=== PATIENT | female | born 1965 | race Two or more races ===

== ENCOUNTER 2016-09-05 09:20 | Day surgery (SDC) | payer MEDICAID ==
[~2016-09-05] VITALS: Ht 162.6 cm; Wt 62.0 kg
[2016-09-05] VITALS (11 sets, daily range): BP systolic 118–138; BP diastolic 61–77; PULSE 75–104; RESP 11–20; Ht 162.6 cm; Wt 62.0 kg
[2016-09-05] MEDS ORDERED: CEFAZOLIN 2 GM/50 ML (PMX) 50 ML IVPB ONE (10:00)
[2016-09-05] MEDS ORDERED: SOD CHLORIDE 0.9% 1,000 ML IV SCH (10:00)
[2016-09-05] MEDS ORDERED: CALCIUM (11:01)
[2016-09-05] MEDS ORDERED: MVI (11:01)
[2016-09-05] MEDS ORDERED: VIT D (11:01)
--- NOTE | 2016-09-05 11:16 | RADRPT ---
PROCEDURE: XR Chest. CLINICAL INDICATION: preop TECHNIQUE: Single frontal view of the chest was obtained COMPARISON: None FINDINGS: The heart and mediastinum are within normal limits. The lungs are clear. There is no pleural effusion or pneumothorax. RPTAT: AA IMPRESSION: No acute disease. .Johnny Edouard MD, Date Time Electronically viewed and signed by .Johnny Edouard MD, on 09/05/2016 11:16 .S/
[2016-09-05 11:23] LABS: ADD SCAN DIFF NO
[2016-09-05 11:25] LABS: BASOPHILS % 0.4 % (0.0-2.0); EOSINOPHILS # 0.1 10^3/ul (0.0-0.5); EOSINOPHILS % 1.3 % (0.0-7.0); HEMATOCRIT 41.3 % (37.0-47.0); HEMOGLOBIN 13.4 g/dl (12.0-16.0); LYMPHOCYTES # 1.6 10^3/ul (0.8-2.9); LYMPHOCYTES % 34.3 % (15.0-51.0); MEAN CORPUSCULAR HEMOGLOBIN 29.6 pg (29.0-33.0); MEAN CORPUSCULAR HGB CONC 32.4 g/dl (32.0-37.0); MEAN CORPUSCULAR VOLUME 91.4 fl (82.0-101.0); MEAN PLATELET VOLUME 10.8 fl (7.4-10.4); MONOCYTE # 0.3 10^3/ul (0.3-0.9); NEUTROPHIL # 2.7 10^3/ul (1.6-7.5); NEUTROPHILS % 57.8 % (39.0-77.0); PLATELET COUNT 215 10^3/UL (140-415); RED BLOOD COUNT 4.52 10^6/ul (4.20-5.40); RED CELL DISTRIBUTION WIDTH 12.3 % (11.5-14.5); WHITE BLOOD COUNT 4.6 10^3/ul (4.8-10.8)
[2016-09-05 11:36] LABS: INR 0.94; PROTIME 12.6 Sec (12.2-14.2)
[2016-09-05 11:37] LABS: PARTIAL THROMBOPLASTIN TIME 27.9 Sec (25.0-35.0)
[2016-09-05 11:40] LABS: CALCIUM 9.3 mg/dl (8.4-10.2); CREATININE 0.55 mg/dl (0.44-1.00); POTASSIUM 4.1 mmol/L (3.5-5.1)
[2016-09-05] MEDS ORDERED: PROPOFOL 20 ML ONE (14:29)
[2016-09-05] MEDS ORDERED: ONDANSETRON 4 MG INJ ONE (14:29)
[2016-09-05] MEDS ORDERED: FENTAnyl 50 MCG/ML VIAL ONE (14:29)
[2016-09-05] MEDS ORDERED: MIDAZOLAM 1 MG/ML 2 ML INJ ONE (14:29)
[2016-09-05] MEDS ORDERED: METOCLOPRAMIDE 10 MG INJ ONE (14:29)
[2016-09-05] MEDS ORDERED: CEFAZOLIN 1 GM INJ ONE (14:47)
[2016-09-05] MEDS ORDERED: MEPERIDINE 25 MG INJ IV PRN (15:00)
[2016-09-05] MEDS ORDERED: OXYCODONE/ACETAMINOPHEN (5/325) TAB PO PRN ×2 (15:00)
[2016-09-05] MEDS ORDERED: DIPHENHYDRAMINE 50 MG INJ IV PRN (15:00)
[2016-09-05] MEDS ORDERED: METOCLOPRAMIDE 10 MG INJ IV PRN (15:00)
[2016-09-05] MEDS ORDERED: HYDROmorphONE (0.2 MG/ML) 10ML SYG IV PRN (15:00)
[2016-09-05] MEDS ORDERED: EPHEDrine SULFATE 50 MG/5 ML SYG ONE (15:04)
--- NOTE | 2016-09-05 15:47 | OPR ---
DATE OF OPERATION: 09/05/2016 PREOPERATIVE DIAGNOSIS: Left breast mass with core biopsy positive carcinoma in situ. POSTOPERATIVE DIAGNOSIS: Left breast mass core biopsy positive carcinoma in situ. OPERATION PERFORMED: Left partial mastectomy. ANESTHESIA: General. ANESTHESIOLOGIST: Sanaz Mota MD SURGEON: Mikey Mckeon MD SUMAC TANNER: Nery Mendoza MD INDICATIONS FOR PROCEDURE: The patient is a 51-year-old female who presented with a vaguely palpabl e mass at 6 o'clock location of her left breast. 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 Sh e was counseled as to need for complete surgical excision. She consented and was scheduled for surg buck. DESCRIPTION OF PROCEDURE: The patient was brought to the operating theater, placed under general an esthesia. The left breast was prepped and draped in usual sterile fashion. A periareolar incision was made from the 9 o'clock position through the 6 o'clock position to the 3 o'clock position. Subc utaneous tissue was dissected with cautery. Skin hooks were used to elevate the skin edges and wide circumferential dissection of the tissue associated with the mass took place. Specimen was transec vincent, oriented, and sent for permanent pathologic analysis. Dr. Mckeon then inspected the wound cavit y. There appeared to be additional suspicious tissue medially. Additional resection of this medial tissue took place. It was oriented and sent for pathologic analysis. The wound was irrigated. Res idual bleeding was controlled with cautery. The skin was then reapproximated with a deep dermal lay er of 4-0 Vicryl sutures in interrupted fashion, followed by final skin approximation with a 5-0 PDS suture in subcuticular fashion. The patient tolerated procedure well. Estimated blood loss was 30 mL. There were no complications and the patient was transported in stable condition to the recover y room where circumferential compression dressing was applied. Dictated By: MIKEY MCKEON MD TL/NTS Conf#: [id number] DID#: [id number] CC: NERY MENDOZA MD;*EndCC*
[2016-09-05] MEDS: ONDANSETRON 4 MG INJ IV PRN ×2 (15:58→16:30)
[2016-09-05] MEDS: HYDROmorphONE (0.2 MG/ML) 10ML SYG IV PRN ×4 (15:58→16:23)
--- NOTE | 2016-09-09 17:51 | RADRPT ---
Vent Rate: 67 bpm RR Interval: 0 msec LA Interval: 128 msec QRS Duration: 92 msec QT Interval: 404 msec QTC Interval: 426 msec P-R-T [place]: 60 - 68 - 74 degrees Normal sinus rhythm T inverted in aVL Abnormal ECG Electronically Signed By: Lucio Quezada [id number]
== END 2016-09-05 19:07 | disposition home or self-care (01) ==
LOC: SDS 09:20
PROVIDERS: ATTEND Surgery Surgical Oncology
DX: D05.12 Intraductal carcinoma in situ of left breast (principal)
CPT/HCPCS: 71010; 80048; 84703; 85025; 85610; 85730; 88307; 93005; J0690; J1170; J2250; J2405; J2765; J3010

== ENCOUNTER 2016-10-13 10:13 | Day surgery (SDC) | payer MEDICAID ==
[2016-10-10 09:27] LABS: ADD SCAN DIFF NO
[2016-10-10 09:33] LABS: BASOPHILS % 0.7 % (0.0-2.0); HEMATOCRIT 38.9 % (37.0-47.0); HEMOGLOBIN 12.7 g/dl (12.0-16.0); LYMPHOCYTES # 1.6 10^3/ul (0.8-2.9); MEAN CORPUSCULAR HEMOGLOBIN 30.4 pg (29.0-33.0); MEAN CORPUSCULAR HGB CONC 32.6 g/dl (32.0-37.0); MEAN CORPUSCULAR VOLUME 93.1 fl (82.0-101.0); MEAN PLATELET VOLUME 10.9 fl (7.4-10.4); MONOCYTE # 0.2 10^3/ul (0.3-0.9); NEUTROPHIL # 2.1 10^3/ul (1.6-7.5); NEUTROPHILS % 53.1 % (39.0-77.0); PLATELET COUNT 162 10^3/UL (140-415); RED BLOOD COUNT 4.18 10^6/ul (4.20-5.40); RED CELL DISTRIBUTION WIDTH 12.1 % (11.5-14.5)
[2016-10-10 09:41] LABS: POTASSIUM 4.3 mmol/L (3.5-5.1)
[2016-10-10 09:46] LABS: INR 0.95; PARTIAL THROMBOPLASTIN TIME 32.1 Sec (25.0-35.0); PROTIME 12.7 Sec (12.2-14.2)
[2016-10-10 10:01] LABS: CALCIUM 9.3 mg/dl (8.4-10.2); CREATININE 0.62 mg/dl (0.44-1.00)
[2016-10-10 10:05] VITALS: BMI 22.7
[~2016-10-13] VITALS: Ht 162.6 cm; Wt 61.0 kg
[2016-10-13] VITALS (26 sets, daily range): BP systolic 110–138; BP diastolic 57–82; PULSE 68–94; RESP 14–25; Ht 162.6 cm; Wt 61.0 kg
[~2016-10-13 10:13] MED LIST: CALCIUM; MVI; VIT D
[2016-10-13] MEDS ORDERED: SOD CHLORIDE 0.9% 1,000 ML IV ONE (10:30)
[2016-10-13] MEDS ORDERED: CEFAZOLIN 1 GM/50 ML (PMX) 50 ML IVPB ONE (10:30)
[2016-10-13] MEDS ORDERED: ONDANSETRON 4 MG INJ IV PRN ×2 (11:30→13:00)
[2016-10-13] MEDS ORDERED: morphine 2 MG INJ IV PRN (11:30)
[2016-10-13] MEDS ORDERED: ACETAMINOPHEN 1000MG/100ML IV 100 ML IVPB PRN (11:30)
--- NOTE | 2016-10-13 11:43 | RADRPT ---
PROCEDURE: XR Chest AP portable CLINICAL INDICATION: Left mastectomy TECHNIQUE: An AP portable radiograph of the chest was submitted. COMPARISON: 09/05/2016 FINDINGS: Support Hardware: None Cardiovascular: The cardiovascular silhouette appears unremarkable. Lung Arroyo: The lung arroyo appear clear with no nodule, alveolar infiltrate, or interstitial promi nence evident. Pleural Spaces: No pneumothorax or pleural effusion is identified. Osseous Structures: Mild degenerative spine changes are noted. Soft Tissues: Unremarkable. IMPRESSION: Stable and unremarkable portable chest. Physician Berny Date Time Electronically viewed and signed by Kameron Campbell Physician on 10/13/2016 11:43 RH/
[2016-10-13] MEDS ORDERED: MIDAZOLAM 1 MG/ML 2 ML INJ ONE (12:42)
[2016-10-13] MEDS ORDERED: FENTAnyl 50 MCG/ML VIAL ONE (12:42)
[2016-10-13] MEDS ORDERED: HYDROmorphONE (0.2 MG/ML) 10ML SYG IV PRN (13:00)
[2016-10-13] MEDS ORDERED: MEPERIDINE 25 MG INJ IV PRN (13:00)
[2016-10-13] MEDS ORDERED: DIPHENHYDRAMINE 50 MG INJ IV PRN (13:00)
[2016-10-13] MEDS ORDERED: CEFAZOLIN 1 GM INJ ONE (13:41)
[2016-10-13] MEDS ORDERED: PROPOFOL 20 ML ONE (13:41)
[2016-10-13] MEDS ORDERED: ONDANSETRON 4 MG INJ ONE (13:41)
[2016-10-13] MEDS ORDERED: LIDOCAINE 2% (SDV) 5 ML INJ ONE (13:41)
[2016-10-13] MEDS ORDERED: METOCLOPRAMIDE 10 MG INJ ONE (13:47)
[2016-10-13] MEDS ORDERED: DEXAMETHASONE 4 MG/ML 1 ML INJ ONE (13:47)
[2016-10-13] MEDS: FENTAnyl 50 MCG/ML VIAL IV PRN ×2 (14:18→14:23)
[2016-10-13] MEDS: HYDROmorphONE (0.2 MG/ML) 10ML SYG IV PRN ×2 (14:19→14:24)
--- NOTE | 2016-10-13 16:05 | OPR ---
DATE OF OPERATION: 10/13/2016 PREOPERATIVE DIAGNOSIS: Ductal carcinoma in situ, left breast with a microinvasion. POSTOPERATIVE DIAGNOSIS: Ductal carcinoma in situ, left breast with a microinvasion. OPERATION PERFORMED: Left total mastectomy. ANESTHESIA: General. ANESTHESIOLOGIST: Abdiel Lerner MD. SURGEON: Mikey Mckeon MD. ICU NURSE: LISS HARGROVE MD. INDICATIONS FOR PROCEDURE: The patient is a 51-year-old female who presented with a palpable mass i n her left breast. She had a previous left partial mastectomy. The final pathology revealed ductal carcinoma in situ, a relatively large span with an area of microinvasion and the tumor was directly under the nipple. The patient was counseled as to the need for a minimum reexcision and considerat ion for sentinel lymph node biopsy. However, the patient and the patient's family did not want to p roceed in that fashion as they were reluctant to also have radiation and they did not want to accept the fact that they may need additional surgery if margins remain positive. Therefore, they elected to undergo a left mastectomy and discussion was made that possible lymph node sampling would take p lace. Patient consented and was scheduled for surgery. DESCRIPTION OF PROCEDURE: The patient was brought to the operating theater, placed under general en dotracheal tube anesthesia. The left breast and axillary region were prepped and draped in usual st erile fashion. An elliptical incision was then made around the portion of the breast skin including the nipple areolar complex. This took place with a 15 blade scalpel. The skin edges were elevated with Allis Robert clamps and skin flaps were then developed sequentially using cautery, first superi erwin to the clavicle, then medially to the sternal border, inferiorly to the inframammary fold and t hen laterally until the latissimus dorsi muscle was identified throughout its course. Mastectomy th en took place from medial to lateral at the border of the pectoralis major muscle. The pectoralis m inor muscle was identified. Clavipectoral fascia was incised. Gentle dissection along the chest wa ll took place. Dr. Mckeon thoroughly inspected this area. There did not appear to be any identifiab le lymph nodes and certainly were no enlarged lymph nodes. At this point, Dr. Mckeon made decision t o complete the procedure taking only a minimal amount of axillary tissue. This breast was then cannon sected using cautery, oriented and sent for pathologic analysis. The wound was irrigated. Minimal bleeding was controlled with cautery. A #10 flat Quoc-Conroy drain was then brought through the l eft mid axillary line, cut to size and laid over the pectoralis major muscle and secured in place wi th 2-0 nylon suture in the standard fashion. The skin was then reapproximated with skin gale. P atient tolerated procedure well. ESTIMATED BLOOD LOSS: 20 mL. COMPLICATIONS: There were no complications and the patient was transported in stable condition to [facility] recovery room. Dictated By: MIKEY LUCAS/ITZEL Conf#: [id number] DID#: [id number]
--- NOTE | 2016-10-13 16:20 | HP ---
DATE OF ADMISSION: 10/13/2016 HISTORY OF PRESENT ILLNESS: The patient is a 51-year-old female with invasive cancer of the left br east. The patient underwent left partial mastectomy for left breast mass 2 months ago and margin bi opsy came positive for invasive cancer and the patient was evaluated by Dr. Mckeon in surgical consul tation. The patient was brought and underwent left modified radical mastectomy ____. The patient e xperienced significant pain and dizziness and the patient will be admitted for further evaluation an d management to medical/surgical floor. PAST MEDICAL HISTORY: Positive for arthritis. PAST SURGICAL HISTORY: Status post left partial mastectomy in August 2016 and status post hystere ctomy and bilateral oophorectomy. FAMILY HISTORY: Negative for any history of breast or ovarian cancer. SOCIAL HISTORY: The patient lives with her family. The patient denies tobacco use, denies alcohol u se, denies any or illicit drug use. ALLERGIES: NO KNOWN ALLERGIES. HOME MEDICATIONS: Include calcium supplements, multivitamins and vitamin D. REVIEW OF SYSTEMS: A 12-point review of systems is negative unless was mentioned in the HPI. PHYSICAL ASSESSMENT GENERAL: Well-developed, well-nourished female currently is awake, alert. VITAL SIGNS: Temperature 97.8, pulse is 82, blood pressure 124/67, respiratory rate 18, oxygen satu ration 99% on room air. HEENT: Head is atraumatic, normocephalic. Pupils are equal and reactive to light and accommodation . Oral mucosa is pink and moist. NECK: Supple, no cervical lymphadenopathy, no thyromegaly. CHEST: Lungs clear bilaterally. The patient has a surgical dressing which is dry, clean and intact . CARDIOVASCULAR: Normal S1, S2. No murmurs, gallops, clicks, rubs noted. ABDOMEN: Round, soft, nondistended, nontender. Bowel sounds present. There is no guarding, no austin ound tenderness. EXTREMITIES: No edema, clubbing, cyanosis. Pulses equal bilaterally 2+. SKIN: There is no rash, petechiae noted. NEUROLOGIC: Patient is awake, alert and oriented x3, no focal deficits noted. LABORATORY DATA: On admission, CBC: White blood cells 4.0, hemoglobin is 12.7, hematocrit 38.9, pl atelets 162. Chemistry: Sodium is 141, potassium 4.3, chloride 105, carbon dioxide 28, anion gap 1 2, BUN is 15, creatinine 0.162, glucose 96, calcium 9.3. PT is 12.7, INR is 0.95. IPTT 32.1. IMAGING: Chest x-ray stable and unremarkable portable chest. ASSESSMENT AND PLAN: Invasive cancer of the left breast status post left modified radical mastectom y. We will continue morphine and Tylenol p.r.n. for pain, Zofran p.r.n. for nausea. Continue IV fl uids. Monitor electrolytes. Incentive spirometer q.1 no oral patient is awake. Continue sequential compression devices for deep venous thrombosis prophylaxis. Further recommendations based on clinical course. Plan of care was discussed with Dr. Corey. Dictated By: DENISE RUBIO TELEPHONE MESSENGER for GEOVANNA COREY MD SR/NTS Conf#: [id number] DID#: [id number]
[2016-10-13] MEDS: D5W-0.45 NACL + KCL 20 MEQ 1,000 ML IV SCH ×3 (17:15→19:02)
[2016-10-14 01:00] VITALS: BP 102/59; PULSE 80; RESP 18
[2016-10-14] MEDS: D5W-0.45 NACL + KCL 20 MEQ 1,000 ML IV SCH ×2 (02:33→11:02)
[2016-10-14 05:00] VITALS: BP 108/58; PULSE 78; RESP 19
[2016-10-14] MEDS ORDERED: HYDROCODONE/APAP (5/325) TAB PO PRN (07:00)
[2016-10-14 07:17] VITALS: BP 119/68; RESP 20
[2016-10-14 07:52] LABS: ADD SCAN DIFF NO
[2016-10-14 08:08] LABS: BASOPHILS % 0.1 % (0.0-2.0); HEMATOCRIT 38.5 % (37.0-47.0); HEMOGLOBIN 12.2 g/dl (12.0-16.0); LYMPHOCYTES # 1.2 10^3/ul (0.8-2.9); MEAN CORPUSCULAR HEMOGLOBIN 29.8 pg (29.0-33.0); MEAN CORPUSCULAR HGB CONC 31.7 g/dl (32.0-37.0); MEAN CORPUSCULAR VOLUME 94.1 fl (82.0-101.0); MEAN PLATELET VOLUME 11.7 fl (7.4-10.4); MONOCYTE # 0.5 10^3/ul (0.3-0.9); NEUTROPHILS % 83.2 % (39.0-77.0); PLATELET COUNT 194 10^3/UL (140-415); RED BLOOD COUNT 4.09 10^6/ul (4.20-5.40); RED CELL DISTRIBUTION WIDTH 12.1 % (11.5-14.5); WHITE BLOOD COUNT 10.8 10^3/ul (4.8-10.8)
[2016-10-14 08:16] LABS: POTASSIUM 4.5 mmol/L (3.5-5.1)
[2016-10-14 08:19] LABS: CREATININE 0.59 mg/dl (0.44-1.00)
[2016-10-14 08:20] LABS: CALCIUM 8.8 mg/dl (8.4-10.2)
[2016-10-14] MEDS ORDERED: HYDR-3498 PO (14:32)
--- NOTE | 2016-10-15 07:35 | PN ---
DATE: 10/14/2016 Postop day #1, status post left complete mastectomy for cancer of the left breast status post . SUBJECTIVE: dressing is loose. patient complaints. OBJECTIVE: VITAL SIGNS: 98, 82, 20, 109/68 and saturation 100% on room air. LABORATORY DATA: WBC with 83% segmented, hemoglobin 12.2, hematocrit 38.5, no change. Electrolytes are within normal limits. The dressing is loose. Quoc -Conroy has drained 60 mL since operation up to today morning and last night 10 mL and since morning until now, which is 5 p.m. 15 mL, it is semi bloody. ASSESSMENT AND PLAN: Status post left complete mastectomy. The patient is stable. Hematocrit and hemoglobin are stable. Quoc-Conroy drain is acceptable. Dressing was loose, so it was rewrapped around the chest wall again. PLAN: The patient can be discharged home today. Follow up by Dr. Mckeon. The patient should call the office tomorrow and make an appointment. The nurse taught the patient's daughter how to manage the Quoc-Conroy drain and how to measure the drainage. Dictated By: LISS HARGROVE MD PS/NTS Conf#: [id number] DID#: [id number] MTDD
--- NOTE | 2016-10-17 05:29 | DS ---
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 BRIEF HISTORY: The patient is a 51-year-old female who underwent previous left partial mastectomy. The final pathology revealed ductal carcinoma in situ and relatively large stent with an area of mi croinvasion, and the tumor was directed under the nipple. The patient was counseled as to the need for ____ excision and consideration for sentinel lymph node biopsy; however, the patient's family di d not want to proceed in that fashion as they were reluctant to also have radiation. They did not w ant to accept the fact that they need additional surgery if the margins remaining positive; therefor e, they elected to undergo left mastectomy. The patient was brought to the hospital and underwent l eft total mastectomy. Postoperatively, the patient experienced significant pain and dizziness, and the patient was admitted for further evaluation and management. HOSPITAL COURSE: The patient was given Tylenol and morphine for pain and Zofran for nausea. The pa hakannt's condition gradually improved, and the patient's pain was well controlled. The patient was d ischarged home. CONDITION ON DISCHARGE: Hemodynamically stable. ACTIVITY: As patient tolerates. DIET: Regular diet. DISCHARGE MEDICATIONS: The patient was given prescription for [place] p.r.n. for pain. The patient i s to continue on her multivitamins and home medications. The patient is instructed to follow up bill Mckeon in postoperative appointment in 5 to 7 days. Interdisciplinary plan of care was establi shed for this patient. Plan of care was discussed with Dr. Corey. Dictated By: DENISE RUBIO YARN SPOOLER for GEOVANNA COREY MD SR/NTS Conf#: [id number] DID#: [id number]
--- NOTE | 2016-10-17 15:13 | RADRPT ---
Vent Rate: 62 bpm RR Interval: 0 msec [place] Interval: 138 msec QRS Duration: 96 msec QT Interval: 412 msec QTC Interval: 418 msec P-R-T [place]: 56 - 60 - 64 degrees Normal sinus rhythm Normal ECG Electronically Signed By: Lucio Quezada [id number]
== END 2016-10-14 20:15 | disposition home or self-care (01) ==
LOC: SDS 10:13 → MS2 17:10 → SDS 10-14 20:15
PROVIDERS: ATTEND Surgery Surgical Oncology
DX: Z85.3 Personal history of malignant neoplasm of breast (principal)
CPT/HCPCS: 19303; 71010; 80048; 84703; 85025; 85610; 85730; 88307; 93005; J0131; J0690; J1100; J1170; J2175; J2250; J2405; J2765; J3010; J3480; Z7512; Z7610

== ENCOUNTER 2016-10-16 03:42 | Emergency (ER) | payer MEDICAID ==
[~2016-10-16] VITALS: Ht 162.6 cm; Wt 62.0 kg
[~2016-10-16 03:42] MED LIST changes: +HYDR-3498 PO
[2016-10-16 03:45] VITALS: Ht 162.6 cm; Wt 62.0 kg
[2016-10-16 05:05] LABS: URINE BLOOD (Dip) POC Negative (NEGATIVE)
[2016-10-16 05:23] LABS: ADD SCAN DIFF NO
[2016-10-16 05:28] LABS: ADD UMIC NO; URINE BILIRUBIN (Dip) NEGATIVE (NEGATIVE); URINE BLOOD (Dip) NEGATIVE (NEGATIVE); URINE COLOR LT. YELLOW (YELLOW); URINE GLUCOSE (Dip) NEGATIVE (NEGATIVE); URINE KETONES (Dip) NEGATIVE (NEGATIVE); URINE LEUKOCYTE ESTERASE (Dip) NEGATIVE (NEGATIVE); URINE NITRITE (Dip) NEGATIVE (NEGATIVE); URINE TOTAL PROTEIN (Dip) NEGATIVE (NEGATIVE); URINE UROBILINOGEN (Dip) 0.2 E.U./dL (0.1-1.0)
[2016-10-16 05:30] LABS: BASOPHILS % 0.5 % (0.0-2.0); EOSINOPHILS # 0.1 10^3/ul (0.0-0.5); EOSINOPHILS % 0.9 % (0.0-7.0); HEMATOCRIT 40.3 % (37.0-47.0); HEMOGLOBIN 12.4 g/dl (12.0-16.0); LYMPHOCYTES # 1.7 10^3/ul (0.8-2.9); LYMPHOCYTES % 20.3 % (15.0-51.0); MEAN CORPUSCULAR HEMOGLOBIN 28.9 pg (29.0-33.0); MEAN CORPUSCULAR HGB CONC 30.8 g/dl (32.0-37.0); MEAN CORPUSCULAR VOLUME 93.9 fl (82.0-101.0); MEAN PLATELET VOLUME 11.2 fl (7.4-10.4); MONOCYTE # 0.5 10^3/ul (0.3-0.9); MONOCYTES % 5.5 % (0.0-11.0); NEUTROPHIL # 6.2 10^3/ul (1.6-7.5); NEUTROPHILS % 72.6 % (39.0-77.0); PLATELET COUNT 172 10^3/UL (140-415); RED BLOOD COUNT 4.29 10^6/ul (4.20-5.40); RED CELL DISTRIBUTION WIDTH 12.2 % (11.5-14.5); WHITE BLOOD COUNT 8.5 10^3/ul (4.8-10.8)
[2016-10-16] MEDS ORDERED: ONDANSETRON 4 MG INJ IV STA ×2 (06:00→06:48)
[2016-10-16] MEDS ORDERED: morphine 4 MG/ML VIAL IV STA (06:00)
[2016-10-16] MEDS ORDERED: SOD CHLORIDE 0.9% 1,000 ML IV STA (06:48)
[2016-10-16] MEDS ORDERED: HYDROmorphONE 1 MG/ML SYG IV STA (06:48)
[2016-10-16 07:21] LABS: ALBUMIN 4.6 g/dl (3.3-4.9)
[2016-10-16 07:22] LABS: POTASSIUM 3.7 mmol/L (3.5-5.1)
[2016-10-16 07:24] LABS: BILIRUBIN,INDIRECT 0.5 mg/dl (0-1.1); BILIRUBIN,TOTAL 0.5 mg/dl (0.2-1.3); CREATININE 0.63 mg/dl (0.44-1.00)
[2016-10-16 07:25] LABS: ALBUMIN/GLOBULIN RATIO 1.31; CALCIUM 9.4 mg/dl (8.4-10.2); TOTAL PROTEIN 8.1 g/dl (6.1-8.1)
--- NOTE | 2016-10-16 07:50 | RADRPT ---
PROCEDURE: CT Abdomen and Pelvis without contrast. CLINICAL INDICATION: Abdominal pain TECHNIQUE: CT scan of the abdomen and pelvis without contrast was performed on a multi-slice CT sc judi without intravenous contrast. Coronal and sagittal reformatted images were obtained from the axial source images. Images were reviewed on a high-resolution PACS workstation. One or more of the following does reduction techniques were used: Automated exposure control; adjustment of the mA an d/or kV according to patient size; use of the aorta of reconstruction technique. The total exam CTD I equals 6.78 mGy and the total exam DLP equals 372.19 mGy-cm. COMPARISON: None available. FINDINGS: Evaluation of the lung bases is limited by breathing artifact. There is mild bibasilar atelectasis. Ground-glass opacities are likely related to atelectasis and/or breathing artifact. Heart size is normal, and there is no evidence of pericardial thickening or effusion. Subcutaneous gas is noted in the anterior and left lateral chest wall with small amounts of increase d fluid. Based on bone crusher image, this appears to be related to postsurgical changes which may be rela vincent to left mastectomy or of the left chest wall surgery. There is a 1.3 cm cyst in the left lateral lobe of the liver. The liver, spleen, and pancreas are o therwise normal given the limitations of a noncontrast CT examination. The gallbladder is normal. The adrenal glands are normal. The kidneys without renal calculus or hydronephrosis. The aorta is of normal caliber. There is no retroperitoneal lymph node enlargment. There is no evidence of large or small bowel obstruction. There is moderate retained colonic stool. A normal appendix is identified. No free fluid or fluid collections are identified. No inflamma tory changes are seen. The uterus is absent. No enlarged pelvic sidewall lymph nodes are seen. The bladder is within lore l limits. No free fluid is identified. The inguinal regions are unremarkable. The bones are intact. IMPRESSION: 1. No CT evidence of acute intra-abdominal or pelvic process. 2. Moderate retained colonic stool, correlate with constipation. 3. Subcutaneous gas noted in the left anterior lateral chest wall with small amounts of increased f luid. Based on bone crusher image, there are apparent postsurgical changes including a drain and skin stap les. Recommend correlation with surgical history. 4. Left hepatic cyst. RPTAT: HJBF .Ángel Spence MD, MD Date Time Electronically viewed and signed by .Ángel Spence MD, MD on 10/16/2016 07:49 .B/
[2016-10-16] MEDS ORDERED: DOCU-144 PO (08:04)
--- NOTE | 2016-10-16 08:08 | ERD ---
ER Documentation Chief Complaint Date/Time DATE: 10/16/16 TIME: 08:06 Chief Complaint AP started at 0100. LLQ pain HPI 51-year-old woman complains of left sided abdominal pain and cramping with decreased stool frequency 3-4 days. Symptoms began shortly after modified radical mastectomy on the left for invasive breast carcinoma. She has been using [place] at home for postoperative pain. She denies fevers or chills, no cough, no calf or leg swelling, no rash, no dysuria, no vaginal discharge, no blood per rectum or melena. Her abdominal pain has been nonradiating and nonexertional. ROS All systems reviewed and are negative except as per history of present illness. Medications Home Meds Active Scripts Docusate Sodium* (Colace*) 100 Mg Capsule, 100 MG PO BID, #15 CAP Prov:CLAUS HERRERA MD 10/16/16 Hydrocodone Bit-Acetaminophen (Hydrocodone Bit-APAP) 5-325MG Tablet, 1 TAB PO Q4H Y for PAIN LEVEL 1-5, #20 TAB Prov:DENISE RUBIO 10/14/16 Reported Medications [Mvi] No Conflict Check, DAILY 09/05/16 [Calcium] No Conflict Check, DAILY 09/05/16 [Vit D] No Conflict Check, DAILY 09/05/16 Allergies Allergies: Coded Allergies: No Known Allergy (Unverified , 09/04/16) PMhx/Soc Invasive breast carcinoma status post recent modified radical mastectomy History of Surgery: Yes (HYSTERECTOMY,LT MASTECTOMY, LT AND RT BREAST BX) Anesthesia Reaction: Yes (N/V AND DIZZINESS) Hx Neurological Disorder: No Hx Respiratory Disorders: No Hx Cardiac Disorders: No Hx Psychiatric Problems: No Hx Miscellaneous Medical Probl: No Hx Alcohol Use: No Hx Substance Use: No Hx Tobacco Use: No Smoking Status: Never smoker FmHx Family History: No diabetes Physical Exam Vitals Vital Signs Date Time Temp Pulse Resp B/P Pulse Ox O2 Delivery O2 Flow Rate FiO2 10/16/16 08:43 98.8 70 20 132/70 100 Room Air 10/16/16 07:00 98.8 78 20 136/72 100 Room Air 10/16/16 03:45 98.8 95 20 141/76 100 Physical Exam GENERAL: Well-developed, well-nourished, well-hydrated, in moderate pain HEENT: Moist mucous membranes, pink conjunctiva, no cervical spine tenderness or step-off deformities, no goiter, no jaundice or icterus, extraocular movements intact without pain. No submandibular induration, and no pharyngeal erythema NEURO: Alert and oriented 3, cranial nerves II through XII intact bilaterally, pupils equal round reactive to light, no focal deficits or facial asymmetry, sensation intact distally Strength 5/5 in upper and lower extremities bilaterally CARDIAC: Regular rate and rhythm, no murmurs rubs or gallops LUNGS: Clear bilaterally no wheezing crackles or stridor ABDOMEN: Soft nontender, no guarding, no rigidity, no rebound, no psoas sign no obturator sign. Normoactive bowel sounds SKIN: Warm and dry to touch, no abrasions, contusions, or hematomas, no lacerations, no ecchymosis, no target lesions, and without ulcers EXTREMITIES: No clubbing cyanosis or edema, calves are bilaterally symmetrical, no Homans sign, no popliteal cord sign. Positive surgical changes to the left breast with surgical drain tube in place PSYCH: Normal affect without agitation or irritability Result Diagram: 10/16/1615 10/16/1615 Results 24 hrs Laboratory Tests Test 10/16/16 05:04 10/16/16 05:15 10/16/16 07:30 Bedside Urine pH (LAB) 6.0 Bedside Urine Protein (LAB) Negative Bedside Urine Glucose (UA) Negative Bedside Urine Ketones (LAB) Negative Bedside Urine Blood Negative Bedside Urine Nitrite (LAB) Negative Bedside Urine Leukocyte Esterase (L Negative White Blood Count 8.510^3/ul Red Blood Count 4.2910^6/ul Hemoglobin 12.4g/dl Hematocrit 40.3% Mean Corpuscular Volume 93.9fl Mean Corpuscular Hemoglobin 28.9pg Mean Corpuscular Hemoglobin Concent 30.8g/dl Red Cell Distribution Width 12.2% Platelet Count 09238^3/UL Mean Platelet Volume 11.2fl Neutrophils % 72.6% Lymphocytes % 20.3% Monocytes % 5.5% Eosinophils % 0.9% Basophils % 0.5% Nucleated Red Blood Cells % 0.0/100WBC Neutrophils # 6.210^3/ul Lymphocytes # 1.710^3/ul Monocytes # 0.510^3/ul Eosinophils # 0.110^3/ul Basophils # 0.010^3/ul Nucleated Red Blood Cells # 0.010^3/ul Urine Color LT. YELLOW Urine Clarity CLEAR Urine pH 5.5 Urine Specific [place] 1.025 Urine Ketones NEGATIVE Urine Nitrite NEGATIVE Urine Bilirubin NEGATIVE Urine Urobilinogen 0.2 E.U./dL Urine Leukocyte Esterase NEGATIVE Urine Hemoglobin NEGATIVE Urine Glucose NEGATIVE% Urine Total Protein NEGATIVE Sodium Level 142mmol/L Potassium Level 3.7mmol/L Chloride Level 103mmol/L Carbon Dioxide Level 24mmol/L Anion Gap 19 Blood Urea Nitrogen 20mg/dl Creatinine 0.63mg/dl Glucose Level 133mg/dl Calcium Level 9.4mg/dl Total Bilirubin 0.5mg/dl Direct Bilirubin 0.00mg/dl Indirect Bilirubin 0.5mg/dl Aspartate Amino Transf (AST/SGOT) 20IU/L Alanine Aminotransferase (ALT/SGPT) 16IU/L Alkaline Phosphatase 86IU/L Total Protein 8.1g/dl Albumin 4.6g/dl Globulin 3.50g/dl Albumin/Globulin Ratio 1.31 Lipase 91U/L Prothrombin Time 12.4Sec Prothrombin Time Ratio 1.0 INR International Normalized Ratio 0.92 Current Medications Medications (Trade) Dose Ordered Sig/Rikki Route PRN Reason Start Time Stop Time Status Last Admin Dose Admin Morphine Sulfate (morphine) 4 mg ONCE STAT IV 10/16/16 06:00 10/16/16 06:01 DC 10/16/16 06:11 Ondansetron HCl 4 mg 4 mg ONCE STAT IV 10/16/16 06:00 10/16/16 06:01 DC 10/16/16 06:11 Sodium Chloride (NS) 1,000 ml @ 1,000 mls/hr Q1H STAT IV 10/16/16 06:48 10/16/16 07:47 DC 10/16/16 07:22 Hydromorphone HCl (Dilaudid) 1 mg ONCE STAT IV 10/16/16 06:48 10/16/16 06:49 DC 10/16/16 07:21 Ondansetron HCl (Zofran Inj) 4 mg ONCE STAT IV 10/16/16 06:48 10/16/16 06:49 DC 10/16/16 07:22 Procedures/[facility] IV line was established patient was placed on front desk monitor rhythm strip revealed a sinus rhythm at about 80 bpm with upright P and T waves. Patient was afebrile. I administered 1 L normal saline intravenously, morphine 4 mg IV, and Zofran 4 mg initially. For continued discomfort later I administered hydromorphone 1 mg IV and Zofran 4 mg IV with good response. CBC and electrolytes were normal, liver function tests were normal, coagulation profile was normal, urine analysis was negative for infection. CT scan of the abdomen and pelvis was performed there was no acute inflammatory or infectious pathology noted. Please refer to radiologist dictation for full report. Patient's pain completely resolved and a repeat abdominal exam performed by me just prior to discharge remained benign. Patient will be discharged for follow- up with PMD and her surgeon as scheduled. Differential diagnoses considered, included but not limited to acute coronary syndrome, pulmonary embolism, aortic dissection, abdominal aortic aneurysm, sepsis, stroke, meningitis, encephalitis, pneumonia, appendicitis, cholecystitis , bowel obstruction, pyelonephritis, nephrolithiasis, cystitis, as well as metabolic, hematologic, and electrolyte abnormalities. As well as abscess, cellulitis, fractures, and dislocations. Patient feels much better at this time, and vital signs are normal, symptoms have improved. I did give strict instructions to return to the ED if symptoms continue or worsen, patient will otherwise follow-up with primary care physician. Patient understood instructions and agreed to plan. Departure Diagnosis: Primary Impression: Post-op pain Additional Impression: Constipation Constipation type: drug induced constipation Qualified Code: K59.03 - Drug- induced constipation Condition: Good Patient Instructions: Constipation (Adult), Post Op Wound Check, Pain CLAUS HERRERA MD Oct 16, 2016 08:08
[2016-10-16 08:25] LABS: INR 0.92; PROTIME 12.4 Sec (12.2-14.2)
[2016-10-16 08:43] VITALS: BP 132/70; PULSE 70; RESP 20; TEMP 98.8
== END 2016-10-16 08:45 | disposition home or self-care (01) ==
LOC: E/R 03:42
DX: G89.18 Other acute postprocedural pain (principal); K59.03 Drug induced constipation
CPT/HCPCS: 36415; 74176; 80053; 81003; 83690; 85025; 85610; 87040; 96374; 96375; 96376; J1170; J2270; J2405; J7030; Z7502

== ENCOUNTER 2017-05-01 11:55 | Emergency (ER) | payer MEDICAID ==
[~2017-05-01] VITALS: Ht 162.6 cm; Wt 60.0 kg
[~2017-05-01 11:55] MED LIST changes: +DOCU-144 PO
[2017-05-01 11:59] VITALS: Ht 162.6 cm; Wt 60.0 kg
[2017-05-01] MEDS ORDERED: IBUPROFEN 800 MG TAB PO ONE (13:00)
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
[2017-05-01 14:10] LABS: BASOPHILS % 0.4 % (0.0-2.0); EOSINOPHILS % 0.3 % (0.0-7.0); HEMATOCRIT 40.1 % (37.0-47.0); HEMOGLOBIN 12.5 g/dl (12.0-16.0); LYMPHOCYTES # 1.3 10^3/ul (0.8-2.9); LYMPHOCYTES % 12.8 % (15.0-51.0); MEAN CORPUSCULAR HEMOGLOBIN 29.1 pg (29.0-33.0); MEAN CORPUSCULAR HGB CONC 31.2 g/dl (32.0-37.0); MEAN CORPUSCULAR VOLUME 93.3 fl (82.0-101.0); MEAN PLATELET VOLUME 10.5 fl (7.4-10.4); MONOCYTE # 0.5 10^3/ul (0.3-0.9); NEUTROPHILS % 80.7 % (39.0-77.0); PLATELET COUNT 197 10^3/UL (140-415); RED CELL DISTRIBUTION WIDTH 12.3 % (11.5-14.5); WHITE BLOOD COUNT 9.9 10^3/ul (4.8-10.8)
[2017-05-01 14:26] LABS: CALCIUM 9.6 mg/dl (8.4-10.2); CREATININE 0.75 mg/dl (0.44-1.00); POTASSIUM 4.2 mmol/L (3.5-5.1)
[2017-05-01 14:37] LABS: TROPONIN-I 0.023 ng/ml (0.00-0.12)
[2017-05-01] MEDS ORDERED: IOHEXOL 100 ML ONE (14:59)
[2017-05-01] MEDS ORDERED: SOD CHLORIDE 0.9% 100 ML ONE (14:59)
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
[2017-05-01] MEDS ORDERED: IBUP800T25 PO (15:57)
[2017-05-01] MEDS ORDERED: HYDR-906 PO (15:57)
[2017-05-01 16:04] VITALS: BP 127/68; PULSE 72; RESP 18; TEMP 98.2
== END 2017-05-01 16:05 | disposition home or self-care (01) ==
LOC: E/R 11:55
DX: S22.20XA Unspecified fracture of sternum, initial encounter for closed fracture (principal); R07.9 Chest pain, unspecified; V49.40XA Driver injured in collision with unspecified motor vehicles in traffic accident, initial encounter; Z85.3 Personal history of malignant neoplasm of breast
CPT/HCPCS: 36415; 71020; 71275; 80048; 84484; 85025; Q9967; Z7502; Z7610; 93005